=== PATIENT | male | born 1960 | race Caucasian/White ===

== ENCOUNTER 2018-04-25 14:02 | Emergency (ER) | payer MEDICAID ==
[~2018-04-25] VITALS: Ht 170.2 cm; Wt 81.8 kg
[2018-04-25] MEDS ORDERED: BACITRACIN ZINC OINT 500U/GM, 0.9 GM ONE (14:18)
--- NOTE | 2018-04-25 14:19 | NUR ---
PT AMBULATORY TO ROOM 13 W/ C/O COMING DOWN STAIRS AND FALLING 2 STORIES AND HITTING R SIDE. PT HAD +LOC X FEW SECONDS. PT ALSO HAS C/O MID CP AND R SIDE HEMATOMA. BRUISE NOTED TO MID R CHEST AND PAIN TO BILAT HANDS. PT RESTING ON GURNEY. NADN. WARM BLANKET PROVIDED. PT TAKEN TO CT IN STABLE CONDITION.
--- NOTE | 2018-04-25 15:02 | NUR ---
PT CHART REVIEWED AND PLACED FOR RECHECK.
--- NOTE | 2018-04-25 15:08 | NUR ---
PT RESTING ON HECTOR. ERP DR. HERNANDEZ AT BEDSIDE.
[2018-04-25] MEDS ORDERED: SODIUM CHLORIDE FLUSH 10ML SYR IVF ONE (15:30)
[2018-04-25] MEDS ORDERED: HYDROmorphone 1 MG/ML, 1ML IVPush PRN (15:30)
[2018-04-25] MEDS ORDERED: ONDANSETRON 2MG/ML, 2ML IVPush ONE (15:30)
[2018-04-25 15:38] LABS: BASOPHILS # (AUTO) 0.03 x10^3/uL (0-0.1); BASOPHILS % (AUTO) 0 % (0-1); EOSINOPHILS # (AUTO) 0.02 x10^3/uL (0-0.4); EOSINOPHILS % (AUTO) 0 % (1-7); LYMPHOCYTES # (AUTO) 0.92 x10^3/uL (1-3.4); LYMPHOCYTES % (AUTO) 12 % (22-44); MD NO; MEAN CORPUSCULAR HGB CONC 34.5 g/dL (33.2-36.2); MEAN CORPUSCULAR VOLUME 90.1 fL (81-97); MEAN PLATELET VOLUME 9.3 fL (7.4-10.4); MONOCYTES # (AUTO) 0.47 x10^3/uL (0.2-0.8); MONOCYTES % (AUTO) 6 % (2-9); NEUTROPHILS # (AUTO) 6.33 x10^3/uL (1.8-6.8); NEUTROPHILS % (AUTO) 82 % (42-75); PLATELET COUNT 284 x10^3/uL (130-400); RED BLOOD COUNT 4.93 x10^6/uL (4.38-5.82); RED CELL DISTRIBUTION WIDTH 13.3 % (9.4-14.8)
[2018-04-25 15:39] LABS: ALBUMIN 4.3 g/dL (3.4-5.0); ANION GAP 7 mmol/L (5-15); CALCIUM 8.6 mg/dL (8.5-10.1); CHLORIDE 108 mmol/L (98-107); CREATININE 1.11 mg/dL (0.7-1.3)
--- NOTE | 2018-04-25 15:48 | NUR ---
PT REFUSING DILAUDID AT THIS TIME.
[2018-04-25] MEDS ORDERED: MORPHINE SULFATE 4 MG/ML, 1ML IVPush PRN (16:00)
[2018-04-25] MEDS ORDERED: MORPHINE SULFATE 4 MG/ML, 1ML ONE (16:00)
--- NOTE | 2018-04-25 16:05 | NUR ---
PT TAKEN TO CT IN STABLE CONDITION.
[2018-04-25] MEDS ORDERED: ONDANSETRON 2MG/ML, 2ML ONE (16:06)
[2018-04-25] MEDS ORDERED: OMNIPAQUE 350 MG/ML, 100ML BOTTLE ONE (16:21)
[2018-04-25] MEDS ORDERED: KETOROLAC 30 MG/1 ML IVPush ONE (17:00)
[2018-04-25 17:12] VITALS: BP 118/74
== END 2018-04-25 17:27 | disposition home or self-care (01) ==
LOC: ED 17:15
DX: S06.0X1A Concussion with loss of consciousness of 30 minutes or less, initial encounter (principal); S30.1XXA Contusion of abdominal wall, initial encounter; S20.211A Contusion of right front wall of thorax, initial encounter; Z87.891 Personal history of nicotine dependence; W11.XXXA Fall on and from ladder, initial encounter; Y93.89 Activity, other specified; Y92.009 Unspecified place in unspecified non-institutional (private) residence as the place of occurrence of the external cause; Y99.8 Other external cause status
CPT/HCPCS: 36415; 70450; 70486; 71101; 73130; 74177; 80048; 82040; 85025; 93005; 96374; 96375; 99284; J2405; Q9967

== ENCOUNTER → 2018-06-20 | Outpatient (CLI) | payer MEDICAID | END | disposition home or self-care (01) | LOC: RAD 13:50 | PROVIDERS: ATTEND Internal Medicine | DX: M19.041 Primary osteoarthritis, right hand (principal); M25.841 Other specified joint disorders, right hand ==

== ENCOUNTER 2019-03-26 18:29 | Emergency (ER) | payer MEDICAID, OTHER ==
[~2019-03-26] VITALS: Ht 170.2 cm; Wt 79.2 kg
[2019-03-26 18:40] VITALS: BP 137/83
--- NOTE | 2019-03-26 18:50 | NUR ---
Patient out of room for imaging. Awaiting return.
[2019-03-26 19:17] LABS: RAPID INFLUENZA A Negative (Negative); RAPID INFLUENZA B Negative (Negative)
== END 2019-03-26 19:48 ==
LOC: ED 19:40
DX: B34.9 Viral infection, unspecified (principal); I10 Essential (primary) hypertension; E11.9 Type 2 diabetes mellitus without complications; Z87.891 Personal history of nicotine dependence
CPT/HCPCS: 71046; 87081; 87147; 87400; 87880; 99284